=== PATIENT | male | born 1990 | race Two or more races ===

== ENCOUNTER 2020-02-24 09:44 | Emergency (ER) | payer MEDICAID ==
[~2020-02-24] VITALS: Ht 172.7 cm; Wt 74.8 kg
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
[2020-02-24] MEDS ORDERED: ONDANSETRON HCL/PF 4 MG/2 ML VIAL ONE (10:04)
[2020-02-24] MEDS ORDERED: MORPHINE SULFATE INJ 4 MG/ML DISP.SYRIN ONE (10:04)
[2020-02-24] MEDS: IV NS 0.9% 1,000 ML BAG IV ONE (10:15)
[2020-02-24] MEDS: MORPHINE SULFATE INJ 2 MG/ML DISP.SYRIN IV ONE (10:16)
[2020-02-24] MEDS: ONDANSETRON HCL/PF 4 MG/2 ML VIAL IVP ONE (10:16)
--- NOTE | 2020-02-24 10:18 | NUR ---
PATIENT REFUSED MORPHINE 4MG IVP, MADE MD AWARE. RECEIVED VERBAL ORDER OF TORADOL 30MG IVP. CARRIED OUT.
[2020-02-24] MEDS ORDERED: KETOROLAC TROMETHAMINE INJ 30 MG/ML VIAL ONE (10:19)
[2020-02-24] MEDS: KETOROLAC TROMETHAMINE INJ 30 MG/ML VIAL IV ONE (10:20)
[2020-02-24 10:22] LABS: BASOPHILS % (AUTO) 0.2 % (0.0-2.0); EOSINOPHILS % (AUTO) 0.5 % (0.0-6.0); HEMATOCRIT 40 % (39-51); HEMOGLOBIN 13.2 g/dL (13.5-17.5); LYMPHOCYTES # (AUTO) 1.2 /CMM (0.8-4.8); LYMPHOCYTES % (AUTO) 10.5 % (20.0-44.0); MEAN CORPUSCULAR HGB CONC 33 g/dl (31.0-36.0); MEAN CORPUSCULAR VOLUME 84 fL (80-96); MONOCYTES # (AUTO) 0.7 /CMM (0.1-1.30); NEUTROPHILS # (AUTO) 9.5 /CMM (1.8-8.9); NEUTROPHILS % (AUTO) 82.8 % (43.0-81.0); PLATELET COUNT (AUTO) 267 /CMM (150-450); RED BLOOD CELL COUNT(AUTO) 4.79 MIL/uL (4.5-6.0); WHITE BLOOD COUNT (AUTO) 11.5 K/uL (4.3-11.0)
[2020-02-24 10:37] LABS: CALCIUM, SERUM 8.6 mg/dL (8.5-10.1); CREATININE 0.9 mg/dL (0.6-1.3); POTASSIUM 3.6 mmol/L (3.5-5.1)
[2020-02-24 10:44] LABS: ALBUMIN 3.9 g/dL (3.4-5.0); BILIRUBIN,DIRECT 0.1 mg/dL (0.0-0.2); BILIRUBIN,TOTAL 0.3 mg/dL (0.2-1.0); TOTAL PROTEIN, SERUM 7.4 g/dL (6.4-8.2)
[2020-02-24 10:56] LABS: APPEARANCE,URINE Clear (CLEAR); BILIRUBIN,URINE Negative (NEGATIVE); BLOOD, URINE Trace-intact Ery/uL (NEGATIVE); COLOR,URINE Yellow (YELLOW); KETONES,URINE Negative (NEGATIVE); LEUKOCYTE ESTERASE ,URINE Small (NEGATIVE); NITRITE, URINE Negative (NEGATIVE); PROTEIN,URINE Negative (NEGATIVE); UGLUCOSE Negative (NEGATIVE); UROBILINOGEN,URINE 0.2 EU/dL (0.2)
[2020-02-24 11:00] LABS: BACTERIA,URINE Few /HPF (None Seen); SQUAMOUS EPITHELIAL CELL,UR Rare /HPF (None Seen)
[2020-02-24 13:31] VITALS: BP 116/61
--- NOTE | 2020-02-24 13:31 | NUR ---
Patient discharged to home in stable condition. Written and verbal after care instructions given. Patient verbalizes understanding of instruction.IV removed. Catheter intact and site benign. Pressure and 4x4 applied to site. No bleeding noted. Pt ambulatory with a steady gait
== END 2020-02-24 13:44 | disposition home or self-care (01) ==
LOC: ER 09:49
DX: R10.10 Upper abdominal pain, unspecified (principal); R10.13 Epigastric pain; F15.10 Other stimulant abuse, uncomplicated; R11.2 Nausea with vomiting, unspecified; Z60.2 Problems related to living alone
CPT/HCPCS: 36415; 74176; 80048; 80076; 80305; 80307; 81001; 83690; 85025; 87086; 96361; 96374; 96375; 99284; J1885; J2405; J7030; 81000-TC; G0480; J2270

== ENCOUNTER 2025-01-25 20:56 | Emergency (ER) | payer MEDICAID, OTHER ==
[~2025-01-25] VITALS: Ht 170.2 cm; Wt 54.4 kg
[2025-01-25 22:03] LABS: PLATELET COUNT (AUTO) 282 K/uL (150-450); RED BLOOD CELL COUNT(AUTO) 6.12 MIL/uL (4.5-6.0); RED CELL DISTRIBUTION WIDTH 14.8 % (11.5-15.0); WHITE BLOOD COUNT (AUTO) 10.7 K/uL (4.3-11.0)
[2025-01-25] MEDS ORDERED: HYDR28.316 TP (22:07)
[2025-01-26 01:37] VITALS: BP 115/71; TEMP 98; O2SAT 97
== END 2025-01-26 01:37 ==
LOC: ER 20:58
DX: K64.9 Unspecified hemorrhoids (principal); R42 Dizziness and giddiness; K59.00 Constipation, unspecified; Z60.2 Problems related to living alone
CPT/HCPCS: 36415; 85025-TC